=== PATIENT | male | born 1965 | race Caucasian/White ===

== ENCOUNTER → 2024-02-17 06:57 | Outpatient (REF) | payer OTHER, SELFPAY ==
[2024-02-17 07:59] LABS: % Basophils 0.9 % (0-2); % Eosinophils 4.5 % (0-6); % Lymphocytes 37.4 % (20.5-51.1); % Monocytes 8.6 % (1.7-9.3); % Neutrophils 48.6 % (42.2-75.2); Absolute Eosinophils 0.2 10^3/uL (0-0.7); Absolute Lymphocytes 1.7 10^3/uL (1.2-3.4); Absolute Monocytes 0.4 10^3/uL (0.1-0.6); Absolute Neutrophils 2.2 10^3/uL (1.4-6.5); Hematocrit 42.5 % (39.0-52.0); Hemoglobin 14.5 g/dL (13.0-18.0); Mean Corp Hgb Conc. 34.1 g/dL (33.0-37.0); Mean Corpuscular Hgb 30.2 pg (27.0-31.0); Mean Corpuscular Volume 88.5 fL (80.0-94.0); Mean Platelet Volume 10.7 fL (7.4-10.4); Nucleated Red Blood Cells % 0 % (-); Platelet Count 201 10^3/uL (130-400); White Blood Cell Count 4.4 10^3/uL (4.8-10.8)
[2024-02-17 08:34] LABS: Blood Urea Nitrogen 22 mg/dl (9-20); Calcium 9.2 mg/dl (8.4-10.2); Carbon Dioxide 26 mmol/L (22-30); Chloride 103 mmol/L (98-107); Glucose 89 mg/dl (70-99); HDL Cholesterol 55 mg/dl; Potassium 4.3 mmol/L (3.5-5.1); Sodium 143 mmol/L (135-145); Triglyceride 129 mg/dl (10-149); Very Low Density Lipoprotein 25 mg/dl (0-30); eGFR > 60.00
[2024-02-17 08:44] LABS: LDL Cholesterol, Calculated 408 mg/dl; Total Cholesterol 488 mg/dl (50-199)
[2024-02-17 09:01] LABS: TSH Reflex To Free T4 2.67 uIU/ml (0.47-4.68)
== END ==
LOC: REG 06:57
PROVIDERS: ATTENDING PHYSICIAN Nurse Practitioner Adult Health
DX: E78.2 Mixed hyperlipidemia (principal); Z00.00 Encounter for general adult medical examination without abnormal findings; D72.819 Decreased white blood cell count, unspecified
CPT/HCPCS: 36415; 80048; 80061; 84443; 85025